=== PATIENT | female | born 2005 | race American Indian/Alaskan Native ===

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

== ENCOUNTER 2024-05-21 14:24 | Emergency (ER) | payer OTHER, SELFPAY ==
--- NOTE | ~2024-05-21 | XR_ITS ---
EXAMINATION: XR LUMBOSACRAL SPINE CLINICAL INFORMATION: Reason for Exam lower back pain L1-3 COMPARISON: None TECHNIQUE: 3 views of the lumbar spine FINDINGS: 5 nonrib-bearing lumbar-type vertebral bodies. Vertebral body heights are maintained. Alignment is maintained. Disc space heights are maintained. Paravertebral soft tissues are unremarkable. Intrauterine device in the central pelvis. XR/XR lumbar spine 2-3V IMPRESSION: Vertebral body heights are maintained. Alignment is maintained. Disc space heights are maintained.
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
[2024-05-21 14:37] VITALS: BP 92/57; PULSE 97; RESP 16; O2SAT 96; BMI 27.8
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
[2024-05-21 17:12] VITALS: BP 106/55; PULSE 77; RESP 19; TEMP 36.2; O2SAT 100
[2024-05-21 18:34] VITALS: BP 106/55; PULSE 77; RESP 19; TEMP 36.2; O2SAT 100
== END 2024-05-21 18:37 | disposition home or self-care (01) ==
PROVIDERS: Emergency Provider Emergency Medicine
DX: S33.5XXA Sprain of ligaments of lumbar spine, initial encounter (principal); V43.62XA Car passenger injured in collision with other type car in traffic accident, initial encounter; M54.50 Low back pain, unspecified; R51.9 Headache, unspecified; Y93.89 Activity, other specified; Y92.414 Local residential or business street as the place of occurrence of the external cause; Y99.9 Unspecified external cause status
CPT/HCPCS: 70450; 72100; 72125; 99283; 99284

== ENCOUNTER 2024-05-28 13:55 | Outpatient (AMB) | payer OTHER, SELFPAY ==
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
[2024-05-28 14:01] VITALS: BP 108/60; PULSE 90; O2SAT 98; BMI 27.6
== END 2024-05-28 15:05 | disposition home or self-care (01) ==
PROVIDERS: Visit Provider Nurse Practitioner Primary Care
DX: Z00.00 Encounter for general adult medical examination without abnormal findings (principal); D50.9 Iron deficiency anemia, unspecified; G43.909 Migraine, unspecified, not intractable, without status migrainosus; M25.551 Pain in right hip; M25.552 Pain in left hip; J45.20 Mild intermittent asthma, uncomplicated
CPT/HCPCS: 99395

== ENCOUNTER 2024-06-01 08:23 | Outpatient (REF) | payer OTHER, SELFPAY ==
--- NOTE | ~2024-06-01 | XR_ITS ---
EXAMINATION: XR BILATERAL HIPS CLINICAL INFORMATION: Pain. COMPARISON: None available. TECHNIQUE: Pelvis 1 view. Right hip 2 views. Left hip 2 views. FINDINGS: Right Hip: Anatomic alignment. Joint space is maintained. No acute fracture or dislocation. No abnormal soft tissue calcification. IUD projected over the pelvis. Left Hip: Anatomic alignment. Joint space is maintained. No acute fracture or dislocation. No abnormal soft tissue calcification. Pelvis: SI joints and symphysis pubis are intact. No acute pelvic fracture seen. IUD projected over the pelvis. No abnormal soft tissue calcification. XR/XR hip RT w PEL1V IMPRESSION: No acute osseous abnormality. Study assigned to nh for dictation on June 24, 2024.
--- NOTE | ~2024-06-01 | XR_ITS ---
EXAMINATION: XR BILATERAL HIPS CLINICAL INFORMATION: Pain. COMPARISON: None available. TECHNIQUE: Pelvis 1 view. Right hip 2 views. Left hip 2 views. FINDINGS: Right Hip: Anatomic alignment. Joint space is maintained. No acute fracture or dislocation. No abnormal soft tissue calcification. IUD projected over the pelvis. Left Hip: Anatomic alignment. Joint space is maintained. No acute fracture or dislocation. No abnormal soft tissue calcification. Pelvis: SI joints and symphysis pubis are intact. No acute pelvic fracture seen. IUD projected over the pelvis. No abnormal soft tissue calcification. XR/XR hip LT min 2V IMPRESSION: No acute osseous abnormality. Study assigned to ks for dictation on June 24, 2024.
[2024-06-01 10:12] LABS: MANUAL DIFF FLAG NO
[2024-06-01 10:19] LABS: Appearance Urine Clear; Color Urine Yellow; Glucose Urine UA Negative (Negative); Leukocyte Esterase Urine Negative (Negative); Nitrite Urine Negative (Negative); PH 5.5 (5.0-9.0); Specific Gravity - Urine 1.025 (1.005-1.025); Urine Blood Negative (Negative); Urine Ketones Negative (Negative); Urine Protein Negative (Neg-Trace)
[2024-06-01 10:28] LABS: Basophils Percent Auto 0.5 % (0-2); Eosinophils Percent Auto 0.6 % (0-4); Hematocrit 35.2 % (37.0-47.0); Hemoglobin 11.1 g/dl (12.0-16.0); Imm Gran Abs Auto 0.02 X10*3/uL (0.00-0.03); Imm Gran Pct Auto 0.3 % (0.0-0.4); Lymphocytes Absolute Auto 1.5 X10*3/uL (1.2-4.9); Lymphocytes Percent Auto 23.1 % (20-40); Mean Corpuscular HGB Conc 31.5 g/dl (31.0-35.0); Mean Corpuscular Hemoglobin 26.1 pg (27.0-33.0); Mean Corpuscular Volume 82.8 fL (80.0-98.0); Mean Platelet Volume 10.7 fL (9.4-12.3); Monocytes Absolute Auto 0.6 X10*3/uL (0.1-1.2); Monocytes Percent Auto 8.5 % (2-11); Neutrophils Absolute Auto 4.3 x10*3/uL (2.0-8.3); Platelet Count 327 X10*3/uL (160-400); Red Blood Count 4.25 X10*6/uL (4.20-5.50); Red Cell Distribution Width 15.7 % (11.0-16.0); White Blood Count 6.5 X10*3/uL (4.8-10.8)
[2024-06-01 10:42] LABS: Alanine Aminotransferase 12 U/L (0-31); Alkaline Phosphatase 98 U/L (39-117); Anion Gap 12 (12-20); Aspartate Amino Transferase 15 U/L (5-31); Bilirubin Total 0.4 mg/dL (0.0-1.0); Blood Urea Nitrogen 8 mg/dL (9-16); Calcium 9.2 mg/dL (8.4-10.2); Carbon Dioxide 22 mmol/L (22-29); Chloride 109 mmol/L (96-108); Cholesterol 123 mg/dL (<200); Estimated Glomerular Filt Rate > 60; Glucose Random 95 mg/dL (60-115); HDL Cholesterol 39 mg/dL (>40); Iron 30 mcg/dL (30-160); LDL Cholesterol Calculated 62 mg/dL (<100); Percent Iron Saturation 8 % (15-50); Sodium 139 mmol/L (135-145); Total Iron Binding Capacity 387 mcg/dL (228-428); Total Protein 6.6 g/dL (6.5-8.0); Triglycerides 112 mg/dL (<150); Unsaturated Iron Binding 357 ug/dL
[2024-06-01 11:05] LABS: Vitamin B12 209 pg/mL (200-900)
[2024-06-04 06:09] LABS: TS Negative Control Passed; TS Panel A 0; TS Panel B 0; TS Positive Control Passed; TSpotTB Negative (Negative)
[2024-06-05 15:48] LABS: Vitamin D 25-OH, D2 <4 ng/mL; Vitamin D 25-OH, D3 8 ng/mL; Vitamin D 25-OH, Total 8 ng/mL (30-100)
[2024-06-07 05:58] LABS: Vitamin B6 3.9 ng/mL (2.1-21.7)
== END 2024-06-01 08:24 | disposition home or self-care (01) ==
LOC: HO.HMGCX 08:23
PROVIDERS: Visit Provider Nurse Practitioner Primary Care
DX: Z13.0 Encounter for screening for diseases of the blood and blood-forming organs and certain disorders involving the immune mechanism (principal); Z91.89 Other specified personal risk factors, not elsewhere classified; D50.9 Iron deficiency anemia, unspecified; Z13.21 Encounter for screening for nutritional disorder; Z13.89 Encounter for screening for other disorder; Z13.29 Encounter for screening for other suspected endocrine disorder; Z56.0 Unemployment, unspecified; Z13.220 Encounter for screening for lipoid disorders; M25.551 Pain in right hip
CPT/HCPCS: 36415; 73502; 80053; 80061; 81003; 82306; 82607; 83540; 84207; 84443; 85025; 86481

== ENCOUNTER 2024-10-11 11:46 | Outpatient (REF) | payer OTHER, SELFPAY ==
[2024-10-14 03:54] LABS: TS Negative Control Passed; TS Panel A 0; TS Panel B 0; TS Positive Control Passed; TSpotTB Negative (Negative)
== END 2024-10-11 11:47 | disposition home or self-care (01) ==
LOC: HO.HMGCLDS 11:46
PROVIDERS: Visit Provider Internal Medicine
DX: Z11.1 Encounter for screening for respiratory tuberculosis (principal)
CPT/HCPCS: 36415; 86481